=== PATIENT | female | born 1955 ===

== ENCOUNTER 2016-11-28 13:31 | Emergency (ER) | payer MEDICAID ==
[2016-11-28 13:42] VITALS: BP 130/70; PULSE 81; RESP 16; TEMP 98.2; O2SAT 98
--- NOTE | 2016-11-28 14:18 | ED PDOC ---
HPI: General Adult Time Seen by Provider: 11/28/16 13:48 Chief Complaint (Nursing): Abnormal Skin Integrity Chief Complaint (Provider): Abdominal pain History Per: Patient History/Exam Limitations: no limitations Onset/Duration Of Symptoms: Days (1) Have you had recent travel within the past 21 days to any of the following countries: [place], [place], [place] or [place]?: No Current Symptoms Are (Timing): Still Present Severity: Moderate Additional History Per: Patient Additional Complaint(s): The pt is a 61yo female, PMHx of bipolar disorder, depression, presents to ED for evaluation of bleeding noted from her umbilicus associated with mild periumbilical discomfort for the past day. Pt denies any radiation of pain, fever or chills. She denies any active bleeding or pain at the moment. Additionally, pt is complaining of left lower back pain, states she was seen for this complaint and was given Motrin which provides her relief. She offers no additional medical complaints. Past Medical History Reviewed: Historical Data, Nursing Documentation, Vital Signs Vital Signs: Last Vital Signs Temp 98.2 F 11/28/16 13:38 Pulse 81 11/28/16 13:38 Resp 16 11/28/16 13:38 BP 130/70 11/28/16 13:38 Pulse Ox 98 11/28/16 14:41 - Medical History PMH: Asthma, Bipolar Disorder, Personality Disorder, Schizophrenia Comment Only: Diabetes (type 2) - Family History Family History: States: Unknown Family Hx - Immunization History Hx Tetanus Toxoid Vaccination: Yes Hx Influenza Vaccination: No Hx Pneumococcal Vaccination: No - Home Medications Home Medications: Ambulatory Orders Medication Instructions Recorded Albuterol HFA 11/19/16 Aspirin 11/19/16 Ibuprofen [Motrin] 600 mg PO TID #30 tab 11/19/16 QUEtiapine 11/19/16 Cephalexin [Keflex] 500 mg PO BID #20 capsule 11/28/16 - Allergies Allergies/Adverse Reactions: Allergies Allergy/AdvReac Type Severity Reaction Status Date / Time No Known Allergies Allergy Verified 11/28/16 13:37 Review of Systems ROS Statement: Except As Marked, All Systems Reviewed And Found Negative Gastrointestinal: Positive for: Abdominal Pain Musculoskeletal: Positive for: Back Pain Physical Exam - Reviewed Nursing Documentation Reviewed: Yes Vital Signs Reviewed: Yes - Physical Exam Appears: Positive for: Well, Non-toxic, No Acute Distress Head Exam: Positive for: ATRAUMATIC, NORMAL INSPECTION, NORMOCEPHALIC Skin: Positive for: Normal Color, Warm, DRY Eye Exam: Positive for: Normal appearance Neck: Positive for: Normal Gastrointestinal/Abdominal: Positive for: Normal Exam, Soft, Other (no bleeding noted). Negative for: Tenderness Back: Positive for: Normal Inspection Extremity: Positive for: Normal ROM. Negative for: Deformity, Swelling Neurologic/Psych: Positive for: Alert, Oriented - ECG O2 Sat by Pulse Oximetry: 98 (RA) Pulse Ox Interpretation: Normal Medical Decision Making Medical Decision Making: Time: 1359 Impression: Bleeding from umbilical region, now resolved Plan: -- Wound culture -- ED urine dipstick Time: 1430 Blood noted in urine, will order CT AP for further imaging. CT without acute findings. No stone. Discussed fatty liver with patient and f/u with GI. Scribe Attestation: Documented by Radha Escobar acting as a scribe for SUSANNA Ontiveros Provider Attestation: All medical record entries made by the Scribe were at my direction and personally dictated by me. I have reviewed the chart and agree that the record accurately reflects my personal performance of the history, physical exam, medical decision making, and the department course for this patient. I have also personally directed, reviewed, and agree with the discharge instructions and disposition. Disposition - Clinical Impression Clinical Impression: Back pain, Skin infection - Disposition Referrals: [facility] [Outside] José Valenzuela MD [Staff Provider] - Disposition: Routine/Home Disposition Time: 16:48 Condition: GOOD Prescriptions: Cephalexin [Keflex] 500 mg PO BID #20 capsule Instructions: Non-Alcoholic Fatty Liver Disease (ED), Acute Wound Care (ED)
--- NOTE | 2016-11-28 16:34 | CT ---
PROCEDURE: CT Abdomen and Pelvis without Oral or IV contrast. HISTORY: left flank pain, hematuria COMPARISON: None available. TECHNIQUE: Contiguous axial images of the abdomen and pelvis. No oral or IV contrast administered. Coronal and Sagittal reformats generated and reviewed. Radiation dose: Total exam DLP = 748.65 mGy-cm. This CT exam was performed using one or more of the following dose reduction techniques: Automated exposure control, adjustment of the mA and/or kV according to patient size, and/or use of iterative reconstruction technique. FINDINGS: There is limited evaluation of the solid organs without the administration of IV contrast. LOWER THORAX: No visible consolidation, pleural effusion, or pneumothorax. Small hiatal hernia/distal esophageal wall thickening. LIVER: Hypoattenuation of the liver compatible with hepatic steatosis. GALLBLADDER AND BILE DUCTS: Unremarkable. PANCREAS: Unremarkable. SPLEEN: Unremarkable. ADRENALS: Unremarkable. KIDNEYS AND URETERS: No hydronephrosis or obstructing renal calculus. BLADDER: The urinary bladder appears unremarkable. REPRODUCTIVE: Uterus is present. 15 mm probable right ovarian cyst. APPENDIX: The appendix is not identified. No secondary signs of acute appendicitis. BOWEL: The stomach is nondistended. Lack of oral contrast limits evaluation for bowel pathology. The bowel loops appear within normal limits of caliber without evidence of intestinal obstruction. Scattered diverticulosis without CT evidence of acute diverticulitis. Suture line at the level of the cecum. PERITONEUM: No significant free fluid. No definite free air. LYMPH NODES: No bulky lymphadenopathy identified. VASCULATURE: No aortic aneurysm. BONES: No acute osseous abnormality is detected. OTHER FINDINGS: None. IMPRESSION: 2 mm probable right ovarian cyst. Suggest further evaluation with pelvic ultrasound if indicated. Hepatic steatosis. The appendix is not identified. Suture line at the level of the cecum suggest prior appendectomy. No secondary signs of acute appendicitis. Correlate clinically. Diverticulosis without CT evidence of acute diverticulitis. Additional findings as above.
== END 2016-11-28 16:50 | disposition home or self-care (01) ==
LOC: H.ER 13:31
DX: M54.5 Low back pain (principal); L08.9 Local infection of the skin and subcutaneous tissue, unspecified; E11.9 Type 2 diabetes mellitus without complications; Z86.59 Personal history of other mental and behavioral disorders; J45.909 Unspecified asthma, uncomplicated